=== PATIENT | male | born 1965 | race Two or more races ===

== ENCOUNTER 2022-02-06 12:08 | Emergency (ER) | payer MEDICAID ==
[~2022-02-06] VITALS: Ht 160 cm; Wt 59.0 kg
[2022-02-06 12:50] VITALS: BP 119/81
[2022-02-06] MEDS ORDERED: IBUP600T27 PO (13:15)
== END 2022-02-06 13:31 | disposition home or self-care (01) ==
LOC: ER 12:08
DX: G89.29 Other chronic pain (principal); M54.50 Low back pain, unspecified; Z76.0 Encounter for issue of repeat prescription; E11.9 Type 2 diabetes mellitus without complications; Z79.1 Long term (current) use of non-steroidal anti-inflammatories (NSAID)

== ENCOUNTER 2022-06-26 13:35 | Emergency (ER) | payer MEDICAID ==
[~2022-06-26] VITALS: Ht 154.9 cm; Wt 61.7 kg
[~2022-06-26 13:35] MED LIST: IBUP600T27 PO
[2022-06-26 14:34] VITALS: BP 123/77
[2022-06-26] MEDS ORDERED: IBUP800T27 PO (14:51)
== END 2022-06-26 14:55 | disposition home or self-care (01) ==
LOC: ER 13:35
DX: G89.29 Other chronic pain (principal); M54.50 Low back pain, unspecified; E11.9 Type 2 diabetes mellitus without complications; Z76.0 Encounter for issue of repeat prescription